=== PATIENT | female | born 1935 | race Caucasian/White ===

== ENCOUNTER 2017-02-25 16:31 | Emergency (ER) | payer OTHER, BC ==
[~2017-02-25] VITALS: Ht 160 cm; Wt 66.3 kg
[~2017-02-25 16:31] MED LIST: ADULT LOW DOSE81 M1 PO; CALCIUM + D TA1 EACH PO; CALCIUM 600 +1 EAC3 PO; CALCIUM 600 +1 EAC9 PO; CRESTOR20 MG PO; DAILY VALUE1 EACH PO; ENABLEX7.5 MG PO; Ecotrin PO; FISH OIL CONC1 EACH PO; FLAGYL500 MG PO; FLORASTOR250 MG PO; FORTEO20 MICROGR SC; GABAPENTIN300 MG PO; HYCODAN SYRUP480 ML PO; LEXAPRO20 MG PO; LEXAPRO5 MG PO; LIVALO4 MG PO; LOW DOSE ASPIRI81 M2 PO; Lexapro PO; Lopressor PO; METOPROLOL SUCC25 MG PO; MUCINEX1200 MG PO; MUCINEX600 MG PO; MULTIVITAMIN1 EAC1 PO; MULTIVITAMIN1 EAC2 PO; MYRBETRIQ25 MG; MYRBETRIQ50 MG PO; NEURONTIN300 MG PO; NEURONTIN400 MG PO; Neurontin PO; PANTOPRAZOLE SO40 MG PO; PLAVIX75 MG PO; PREVACID30 MG PO; RECLAST5 MG/100 M IV; REWETTING DROPS20 ML LEFT EYE; TOPROL XL6.25 MG PO; TYLENOL EXTRA500 MG PO; VANCOMYCIN HCL125 MG PO; VITAMIN D1000 INTUN PO; WELLBUTRIN SR150 MG PO; Wellbutrin SR PO; ZITHROMAX Z-PA250 MG PO; ZOFRAN8 MG PO; [UNRECOGNIZED DRUG - OTHER]
[2017-02-25 19:42] LABS: HEMATOCRIT 39.1 % (36.0-46.0); MCH 32.1 PG (29.0-34.0); MCHC 33.5 G/DL (30.0-36.0); MCV 95.8 FL (83-99); MEAN PLAT.VOLUME 9.3 uM^3 (9.5-12.4); PLATELET COUNT 260 K/uL (156-360); RBC DIS.WIDTH-CV 13.5 % (11.8-14.6); RBC DIS.WIDTH-SD 48.4 % (39-53); RED BLOOD COUNT 4.08 M/uL (3.80-5.20)
[2017-02-25 19:50] LABS: CHLORIDE 104 mEq/L (99-109); POTASSIUM 3.6 mEq/L (3.7-5.4); SODIUM 140 mEq/L (136-147)
[2017-02-25 19:52] LABS: GLUCOSE 95 mg/dL (70-99)
[2017-02-25 19:53] LABS: ANION GAP 10 MEQ/L (2-14)
[2017-02-25 19:56] LABS: GFR ESTIMATE (CALCULATED) > 59 mL/min/; INTER. NORMALIZED RATIO 1.1; PROTHROMBIN TIME 10.9 (9.2-11.2); PTT 24.3 (25-32); UREA NITROGEN (BUN) 13 mg/dL (9-23)
[2017-02-25] MEDS ORDERED: COUMADIN5 MG PO (20:23)
[2017-02-25 21:02] VITALS: BP 147/75
== END 2017-02-25 21:02 | disposition home or self-care (01) ==
LOC: EME 16:31
PROVIDERS: Physician Assistant
DX: I82.402 Acute embolism and thrombosis of unspecified deep veins of left lower extremity (principal); I25.10 Atherosclerotic heart disease of native coronary artery without angina pectoris; Z95.1 Presence of aortocoronary bypass graft; Z95.5 Presence of coronary angioplasty implant and graft; K21.9 Gastro-esophageal reflux disease without esophagitis; F32.9 Major depressive disorder, single episode, unspecified; Z86.73 Personal history of transient ischemic attack (TIA), and cerebral infarction without residual deficits; Z79.82 Long term (current) use of aspirin
CPT/HCPCS: 80048; 85027; 85610; 85730; 99281; 99284; J1650

== ENCOUNTER 2017-04-27 12:57 | Observation (INO) | payer OTHER, BC ==
[~2017-04-27] VITALS: Ht 160 cm; Wt 67.0 kg
[~2017-04-27 12:57] MED LIST changes: +COUMADIN5 MG PO
[2017-04-27 14:30] LABS: HEMATOCRIT 38.2 % (36.0-46.0); MCH 32.1 PG (29.0-34.0); MCHC 33.8 G/DL (30.0-36.0); MEAN PLAT.VOLUME 9.1 uM^3 (9.5-12.4); PLATELET COUNT 242 K/uL (156-360); RBC DIS.WIDTH-SD 45.7 % (39-53); RED BLOOD COUNT 4.02 M/uL (3.80-5.20); WHITE BLOOD COUNT 6.1 K/uL (4.1-10.2)
[2017-04-27 14:39] LABS: CHLORIDE 103 mEq/L (99-109); POTASSIUM 3.9 mEq/L (3.7-5.4); SODIUM 138 mEq/L (136-147)
[2017-04-27 14:41] LABS: GLUCOSE 93 mg/dL (70-99)
[2017-04-27 14:43] LABS: ANION GAP 10 MEQ/L (2-14)
[2017-04-27 14:45] LABS: GFR ESTIMATE (CALCULATED) > 59 mL/min/
[2017-04-27 14:46] LABS: UREA NITROGEN (BUN) 14 mg/dL (9-23)
[2017-04-27 14:51] LABS: TROP-I INTERPRETATION NEGATIVE; TROPONIN-I < 0.01 ng/mL (0.0-0.30)
[2017-04-27 15:31] LABS: D-DIMER ELISA < 150.00 ng/mLDDU (<230)
[2017-04-27] MEDS ORDERED: NEURONTIN300 MG PO ×2 (16:44→16:45)
[2017-04-27] MEDS ORDERED: LEXAPRO10 MG PO (16:45)
[2017-04-27] MEDS ORDERED: VITAMIN D31000 UNI2 PO (16:45)
[2017-04-27] MEDS ORDERED: NORCO 5/3251 TABLET PO (16:46)
[2017-04-27] MEDS ORDERED: XARELTO20 MG PO (16:46)
[2017-04-27] MEDS ORDERED: PREVACID30 MG PO (16:46)
[2017-04-27] MEDS ORDERED: TYLENOL EXTRA500 MG PO (16:47)
[2017-04-27 17:29] VITALS: BP 135/63
[2017-04-27 21:15] VITALS: BP 129/67
[2017-04-27 21:58] LABS: TROP-I INTERPRETATION NEGATIVE; TROPONIN-I < 0.01 ng/mL (0.0-0.30)
[2017-04-27 23:54] VITALS: BP 143/67
[2017-04-28 04:10] VITALS: BP 122/65
[2017-04-28 05:43] LABS: TROP-I INTERPRETATION NEGATIVE; TROPONIN-I < 0.01 ng/mL (0.0-0.30)
[2017-04-28 07:15] LABS: ANION GAP 6 MEQ/L (2-14); CHLORIDE 104 MEQ/L (99-109); GFR ESTIMATE (CALCULATED) > 59 mL/min/; GLUCOSE 100 mg/dL (70-99); POTASSIUM 4.1 MEQ/L (3.7-5.4); SAMPLE HEMOLYSIS CHECK 0; SAMPLE ICTERIC CHECK 0; SAMPLE LIPEMIA CHECK 0; SODIUM 139 MEQ/L (136-147); UREA NITROGEN (BUN) 13 mg/dL (9-23)
[2017-04-28 07:42] VITALS: BP 124/64
[2017-04-28 11:26] VITALS: BP 127/60
== END 2017-04-28 15:10 | disposition home or self-care (01) ==
LOC: EME 12:57 → 5WEST 16:10 → EDOF 16:10 → ENRESERV 16:11 → 5WEST 17:18
PROVIDERS: Emergency Medicine; Internal Medicine
DX: R06.02 Shortness of breath (principal); I25.10 Atherosclerotic heart disease of native coronary artery without angina pectoris; Z95.5 Presence of coronary angioplasty implant and graft; Z79.82 Long term (current) use of aspirin; Z79.02 Long term (current) use of antithrombotics/antiplatelets; E78.5 Hyperlipidemia, unspecified; G62.9 Polyneuropathy, unspecified; K21.9 Gastro-esophageal reflux disease without esophagitis; Z88.8 Allergy status to other drugs, medicaments and biological substances
CPT/HCPCS: 71010; 80048; 83880; 84484; 85027; 85379; 93005; 93306; 99281; 99284; G0378

== ENCOUNTER → 2017-06-17 | Outpatient (CLI) | payer OTHER, BC ==
[~2017-06-17] MED LIST changes: +LEXAPRO10 MG PO; +NORCO 5/3251 TABLET PO; +VITAMIN D31000 UNI2 PO; +XARELTO20 MG PO
== END | disposition home or self-care (01) ==
LOC: NUC 08:44
DX: R94.02 Abnormal brain scan (principal)
CPT/HCPCS: 78607; A9584